=== PATIENT | female | born 2005 | race Caucasian/White ===

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

== ENCOUNTER 2025-09-10 13:26 | Outpatient (AMB) | payer OTHER, SELFPAY ==
--- NOTE | 2025-09-10 13:27 | MHC.OFFVIS ---
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 She has been on Depo-Provera for about 2 years which she gets at the [facility] she had the HPV vaccine there she still goes there. She has been in conversation with them about whether not she should change her method of control partly because she has been having some irregular bleeding often on and also because they had told her it was not good to stay on it for more than a couple of years. She is sexually active with her boyfriend who lives with them. 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 She is working on weight loss and is currently on Zepbound which she gets through Dr. Aburto at the weight management program through [facility], previously she was on Wegovy she has lost about 30 lb so far she does have a treadmill at home she would like to go to the gym. She does admit that it can be challenging to go gym with lots of thin people around. [facility] Medical History Heavy menstrual bleeding Family History Father Hypertension Social History (Updated 09/10/25 @ 13:35 by Laura Villa MA) Household Members: Family Housing: House Current occupational status: employed and student Current occupation: [employer] Female Reproductive History Menstrual Age of Menarche: 11 Date of last menstrual period: 08/11/25 control method: progesterone injection (Depo) Total pregnancies: 0 Physical Exam Vital Signs: Last Vital Signs BP 110/66 09/10/25 13:38 BMI result Body Mass Index 47.5 Const General: healthy appearing, comfortable, no acute distress, well developed and alert Nutritional Appearance: average body habitus and obese Orientation/consciousness: patient oriented x3 Limitations: no limitations HEENT Head: Yes normocephalic Neck Neck: Yes normal visual inspection Chest Chest palpation & inspection: normal inspection of the chest Breast/axilla inspection: normal inspection of the breasts and normal inspection of the axillae Breast/axilla palpation: normal palpation of the breasts and normal palpation of the axillae Resp Effort & Inspection: normal respiratory effort GI Inspection: Yes normal to inspection, No Abdominal wall edema and No distended Palpation (GI): Soft to palpation and nontender Other: Pelvic exam done external exam within normal limits vagina is pink and moist cervix is pink moist very tiny, tightly closed, nulliparous . Uterus is small mobile nontender difficult to feel completely secondary to adipose adnexa nontender good muscle tone General: Yes bladder normal to palpation External Female Exam: normal external appearance and normal appearance of the urethra Speculum Exam - Vagina: normal appearance of the vagina, normal palpation and normal vaginal discharge Speculum Exam - Cervix: normal appearance of the cervix, normal palpation and nontender Bimanual exam- vagina & uterus: normal bimanual exam, normal palpation, uterine size normal, bladder normal to palpation, consistency normal, normal palpation, uterine mobility normal, uterine shape normal, No Cervical tenderness present, non-tender and no cervical motion tenderness Bimanual Exam- Adnexa, other: normal adnexae, no masses, normal and No adnexal tenderness Neuro General: patient oriented x3 Assessment & Plan Assessment & Plan (1) Generalized anxiety disorder: Code(s): F41.1 - Generalized anxiety disorder (2) Well woman exam with routine gynecological exam: Code(s): Z01.419 - Encounter for gynecological examination (general) (routine) without abnormal findings Category: Medical (3) Screen for sexually transmitted diseases: Code(s): Z11.3 - Encounter for screening for infections with a predominantly sexual mode of transmission Category: Medical (4) control counseling: Code(s): Z30.09 - Encounter for other general counseling and advice on contraception Category: Medical (5) Uses Depo-Provera as primary control method: Comment: Has been on it for 2 years through the [facility]. Gets it every 12 weeks last injection July 16 and next injection is October 07, occasionally having breakthrough bleeding considering options... Code(s): Z78.9 - Other specified health status Category: Social Hx (6) Obesity, morbid, BMI 40.0-49.9: Comment: Currently on Zepbound was on Wegovy via weight management program at [facility]. Code(s): E66.01 - Morbid (severe) obesity due to excess calories Category: Medical Plan -----Discussed in this visit the following: healthy balanced diet, regular and consistent exercise, getting recommended health screens, doing the best she can for her particular health concerns, kegel exercises, pap smear screening and followup recommendations, mammography screening and SBE, normal changes in cycles in her life stage--- .-I reviewed with the patient, all of the currently common used methods of control that are available. We reviewed how they work in the body, how they are taken, common side effects, uncommon side effects, precautions, and contraindications. -Discussed also factors that influence their effectiveness and use, and womens satisfaction with the method. -Discussed how each are used, and drawbacks of each method as well. -Methods covered included: condoms, control pills, control patches, control rings, Depo-Provera, Nexplanon, Mirena and Kyleena IUDs, and ParaGard IUDs. All of the above methods were covered in great detail including their side effect profiles and common experiences that women have and ways to mitigate against the negative experiences including attention to diet and exercise patient's with bleeding challenges that may occur her and efforts to time the initiation of the method to this start of the menstrual period. Orders: Orders CT NG by PCR Vag/Cerv Today Z11.3 - Encounter for screening for infections with a predominantly sexual mode of transmission Bacterial Vaginosis Panel Today Z11.3 - Encounter for screening for infections with a predominantly sexual mode of transmission Coding Level of Care Code New Pt Prev Care 18-39yr([id number] Diagnoses Generalized anxiety disorder F41.1 Well woman exam with routine gynecological exam Z01.419 Screen for sexually transmitted diseases Z11.3 control counseling Z30.09 Uses Depo-Provera as primary control method Z78.9 Obesity, morbid, BMI 40.0-49.9 E66.01
[2025-09-10 13:38] VITALS: BP 110/66; BMI 47.5
--- OUTSIDE RECORDS SUMMARY | 2025-09-10 16:21 | XMS_ITS | Encounter Summary ---
Author Organization [facility] Address [address] [place] [address] Phone Care Team Providers Care Machine Greaser Name Role Phone Mary Guerrero MD Primary Care Provider [phone] Reason for Visit * Reason Comments Med Refill Encounter Details Date Type Department Care Team (Late st Contact Info) Description 03/02/[address] [address] Nellie Molina DO [address] [place] [address] Anxiety Social History Tobacco Use Types Packs/Day Years Used Date Smoking Tobacco: Never Smokeless Tobacco: Never Comments:Never smoker Comments No Sex and Gender Information Value Date Recorded Sex Assigned at Not on file Legal Sex Female 5:16 PM EDT Gender Identity Female 10/26/2020 4:22 PM EST Sexual Orientation Straight 06/29/2023 11 :53 AM EDT documented as of this encounter Miscellaneous Notes * Telephone Encounter - Valeria Lozano MA - 03/03/2019 9:48 AM EDT Med check apt current. PE current and no f/u pending. Pt will need a f/u with new PCP in May. Please refill the Fluoxetine. documented in this encounter Plan of Treatment Upcoming Encounters Date Type Department Care Team (Late st Contact Info) Description 09/29/2025 1:45 PM EST Office Visit [facility] [address] [place] [address] Lucie Humphrey LCSW [address] [place] [address] 10/07/2025 8:00 AM EST Office Visit [facility] [address] [address] Mary Guerrero MD [address] [place] [address] documented as of this encounter Visit Diagnoses Diagnosis Anxiety Anxiety state, unspecified documented in this encounter Care Teams Machine Greaser Relationship Specialty Start Date End Date Mary Guerrero MD [address] [place] [address] PCP - General Pediatrics 11/02/20 documented as of this encounter
--- OUTSIDE RECORDS SUMMARY | 2025-09-10 16:21 | XMS_ITS | Encounter Summary ---
Author Organization [facility] Address [address] [place] [address] Phone Care Team Providers Care Social Services Analyst Name Role Phone Mary Guerrero MD Primary Care Provider [phone] Encounter Details Date Type Department Care Team (Late st Contact Info) Description 06/22/[address] [facility] [address] [place] [address] Social History Tobacco Use Types Packs/Day Years Used Date Smoking Tobacco: Never Comments:Never smoker Comments Unknown Sex and Gender Information Value Date Recorded Sex Assigned at Not on file Legal Sex Female 5:16 PM EDT Gender Identity Female 10/26/2020 4:22 PM EST Sexual Orientation Straight 06/29/2023 11 :53 AM EDT documented as of this encounter Plan of Treatment Upcoming Encounters Date Type Department Care Team (Late st Contact Info) Description 09/29/2025 1:45 PM EST Office Visit [facility] [address] [place] [address] Lucie Humphrey LCSW [address] [place] [address] 10/07/2025 8:00 AM EST Office Visit [facility] [address] [place] [address] Mary Guerrero MD [address] [place] [address] documented as of this encounter Visit Diagnoses Not on filedocumented in this encounter Care Teams Social Services Analyst Relationship Specialty Start Date End Date Mary Guerrero MD [address] [place] [address] PCP - General Pediatrics 11/02/20 documented as of this encounter
--- OUTSIDE RECORDS SUMMARY | 2025-09-10 16:21 | XMS_ITS | Encounter Summary ---
Author Organization [facility] Address [address] [place] [address] Phone Care Team Providers Care Medium Cycle Salesperson Name Role Phone Mary Guerrero MD Primary Care Provider [phone] Reason for Visit * Reason Comments Med Refill Encounter Details Date Type Department Care Team (Late st Contact Info) Description 05/31/2019 Refill [facility] [place] [address] [place] [address] Mary Kay Marroquin MD [address] [place] [address] Anxiety Social History Tobacco Use Types Packs/Day [...] encounter Miscellaneous Notes * Telephone Encounter - Nellie Molina DO - 05/31/2019 4:52 PM EDT I changed Rx to fluoxetine 20mg capsule- 1 daily; instead of two 10mg capsules daily. * Telephone Encounter - Lucie Elizabeth LPN - 05/31/2019 12:04 PM EDT PC PCP was [facility]: Pharm fax refill request fluoxetine. Previous pt of Dr. Marroquin. Call placed to [facility] f/u was due this month with new PCP. Trans to rout appt to help choosing new PCP and sched med check. EH documented in this encounter Plan of Treatment Upcoming Encounters Date Type Department Care Team (Late st Contact Info) Description 09/29/2025 1:45 PM EST Office Visit [facility] [address] [place] [address] Lucie Humphrey LCSW [address] [place] [address] 10/07/2025 8:00 AM EST Office Visit [facility] [address] [place] [address] Mary Guerrero MD [address] [place] [address] documented as of this encounter Visit Diagnoses Diagnosis Anxiety Anxiety state, unspecified documented in this encounter Care Teams Medium Cycle Salesperson Relationship Specialty Start Date End Date Mary Guerrero MD [address] [place], [place] [id number] PCP - General Pediatrics 11/02/20 documented as of this encounter
--- OUTSIDE RECORDS SUMMARY | 2025-09-10 16:21 | XMS_ITS | Encounter Summary ---
Author Organization [facility] Address [address] [place] [address] Phone Care Team Providers Care Supervisor Boilermaking Shop Name Role Phone Mary Guerrero MD Primary Care Provider [phone] Reason for Visit * Reason Comments Med Refill Encounter Details Date Type Department Care Team (Late st Contact Info) Description 07/30/[address] [address] Mary Kay Marroquin MD [address] [place] [address] Anxiety (Primary Dx) Social History Tobacco Use Types Packs/Day Years Used Date Smoking Tobacco: Never Comments:Never smoker Comments No Sex and Gender Information Value Date Recorded Sex Assigned at Not on file Legal Sex Female 5:16 PM EDT Gender Identity Female 10/26/2020 4:22 PM EST Sexual Orientation Straight 06/29/2023 11 :53 AM EDT documented as of this encounter Miscellaneous Notes * Telephone Encounter - Mansi Diaz LPN - 07/30/2018 11:58 AM EDT Refill request for Fluoxetine, last PE 11/19/18, has pending PE appt on 11/19/18./LENORA documented in this encounter Plan of Treatment Upcoming Encounters Date Type Department Care Team (Late st Contact Info) Description 09/29/2025 1:45 PM EST Office Visit [facility] [address] [place] [address] Lucie Humphrey LCSW [address] [place] [address] 10/07/2025 8:00 AM EST Office Visit [facility] - [address] [address] Mary Guerrero MD [address] [place] [address] documented as of this encounter Visit Diagnoses Diagnosis Anxiety- Primary Anxiety state, unspecified documented in this encounter Care Teams Supervisor [employer]il[employer]aking Shop Relationship Specialty Start Date End Date Mary Guerrero MD [address] [place] [address] PCP - General Pediatrics 11/02/20 documented as of this encounter
--- OUTSIDE RECORDS SUMMARY | 2025-09-10 16:21 | XMS_ITS | Encounter Summary ---
Author Organization [facility] Address [address] [place] [address] Phone Care Team Providers Care Hvac Residential Service Technician Name Role Phone Mary Guerrero MD Primary Care Provider [phone] Reason for Visit * Reason Comments Med Refill Encounter Details Date Type Department Care Team ([facility] st Contact Info) Description 08/18/2023 Refill [facility] [address] [place] [address] Mary Guerrero MD [address] [place] [address] Chronic maxillary sinusitis Social History Tobacco Use Types Packs/Day Years Used Date Smoking Tobacco: Never Smokeless Tobacco: Never Comments:Never smoker Hunger/Food Answer Date Recorded In the last 12 months, did y ou or your family ever eat less than you felt you should because there wasn't enough money for food? No 12/06/2021 Stable Housing Answer Date Recorded Are you worried that in the next 2 months you may not have stable housing? No 12/06/2021 Transportation Concerns Answer Date Rec orded In the last 12 months, have you or your family ever had to go without healthcare because you didn't have a way to get there? No 12/06/2021 Hazards in Home Answer Date Recorded Think about the place you li ve. Do you have problems with any of the following? Pests (mice or roaches), mold, no/not working smoke detectors, water leaks, no window guards. No 2021 Financing Utilities Answer Date Recorde d In the last 12 months, has t he electric, gas, oil, or water company threatened to shut off your services in your home? No 12/06/2021 Safety at Home Answer Date Recorded Are you or your family worried about feeling saf e in your home? No 12/06/2021 Outside Support Answer Date Recorded Do you feel that you need mo re support from other people or programs to help you care for yourself or your family? No 12/06/2021 Understanding Health Concerns Answer Da te Recorded Do you need help understandi ng your or your child's healthcare needs (diagnosis, medications, plan, etc.)? No 12/06/2021 Financing Health Concerns Answer Date R ecorded In the last 12 months, was t here a time when your child needed to see a doctor or get medications or supplies but could not because of cost? No 12/06/2021 Missing School or Work Answer Date Arnulfo rded Did you or your child miss s chool or work because of a health problem that could have been avoided? No 12/06/2021 Comments No Sex and Gender Information Value Date Recorded Sex Assigned at Not on file Legal Sex Female 5:16 PM EDT Gender Identity Female 10/26/2020 4:22 PM EST Sexual Orientation Straight 06/29/2023 11 :53 AM EDT documented as of this encounter Miscellaneous Notes * Telephone Encounter - Mary Guerrero MD - 08/22/2023 5:14 PM EDT Rx reviewed and e-prescribed to pharmacy. * Telephone Encounter - Lucie Elizabeth LPN - 08/18/2023 8:36 AM EDT Pharm requesting refill fluticasone. EH documented in this encounter Plan of Treatment Upcoming Encounters Date Type Department Care Team (Late st Contact Info) Description 09/29/2025 1:45 PM EST Office Visit [facility] [address] [place] [address] Lucie Humphrey LCSW [address] [place] [address] 10/07/2025 8:00 AM EST Office Visit [facility] - [address] [address] Mary Guerrero MD [address] [place] [address] documented as of this encounter Visit Diagnoses Diagnosis Chronic maxillary sinusitis documented in this encounter Care Teams Hvac Residential Service Technician Relationship Specialty Start Date End Date Mary Guerrero MD [address] [place] [address] PCP - General Pediatrics 11/02/20 documented as of this encounter
--- OUTSIDE RECORDS SUMMARY | 2025-09-10 16:22 | XMS_ITS | Encounter Summary ---
Author Organization [facility] Address [address] [place] [address] Phone Care Team Providers Care Accounting Machine Servicer Name Role Phone Mary Guerrero MD Primary Care Provider [phone] Reason for Visit * Reason Comments Med Refill Encounter Details Date Type Department Care Team (Late st Contact Info) Description 01/19/2018 Refill [facility] [address] [place] [address] Mary Kay Marroquin MD [address] [place] [address] Anxiety Social History Tobacco Use Types Packs/Day Years Used Date Smoking Tobacco: Never Comments:Never smoker Comments No Sex and Gender Information Value Date Recorded Sex Assigned at Not on file Legal Sex Female 5:16 PM EDT Gender Identity Female 10/26/2020 4:22 PM EST Sexual Orientation Straight 06/29/2023 11 :53 AM EDT documented as of this encounter Miscellaneous Notes * Telephone Encounter - Criselda Reynolds LPN - 01/22/2018 9:34 AM EDT FLUOXETINE 10MG CAPSULES Last pe 11/23 documented in this encounter Plan of Treatment Upcoming Encounters Date Type Department Care Team (Late st Contact Info) Description 09/29/2025 1:45 PM EST Office Visit [facility] [address] [place], [place] [phone] Lucie Humphrey LCSW [address] [place], [place] [phone] 10/07/2025 8:00 AM EST Office Visit [facility] - [address] [address] Mary Guerrero MD [address] [place] [address] documented as of this encounter Visit Diagnoses Diagnosis Anxiety Anxiety state, unspecified documented in this encounter Care Teams Accounting Machine Servicer Relationship Specialty Start Date End Date Mary Guerrero MD [address] [place] [address] PCP - General Pediatrics 11/02/20 documented as of this encounter
--- OUTSIDE RECORDS SUMMARY | 2025-09-10 16:22 | XMS_ITS | Encounter Summary ---
Author Organization [facility] Address [address] [place] [address] Phone Care Team Providers Care Switch Box Installer Name Role Phone Mary Guerrero MD Primary Care Provider Reason for Visit * Reason Comments Med Refill Encounter Details Date Type Department Care Team (Late st Contact Info) Description 04/30/2025 Refill [facility] [place] [address] [place] [address] Mary Guerrero MD [address] [place] [address] Acute upper respiratory infection, unspecified Social History Tobacco Use Types Packs/Day Years Used Date Smoking Tobacco: Never Smokeless Tobacco: Never Comments:Never smoker Hunger/Food Answer Date Recorded In the last 12 months, did y ou or your family ever eat less than you felt you should because there wasn't enough money for food? No 02/05/2025 Stable Housing Answer Date Recorded Are you worried that in the next 2 months you may not have stable housing? No 02/05/2025 Transportation Concerns Answer Date Rec orded In the last 12 months, have you or your family ever had to go without healthcare because you didn't have a way to get there? No 02/05/2025 Hazards in Home Answer Date Recorded Think about the place you li ve. Do you have problems with any of the following? Pests (mice or roaches), mold, no/not working smoke detectors, water leaks, no window guards. No 2024 Financing Utilities Answer Date Recorde d In the last 12 months, has t he electric, gas, oil, or water company threatened to shut off your services in your home? No 02/05/2025 Safety at Home Answer Date Recorded Are you or your family worried about feeling saf e in your home? No 02/05/2025 Outside Support Answer Date Recorded Do you feel that you need mo re support from other people or programs to help you care for yourself or your family? No 02/05/2025 Understanding Health Concerns Answer Da te Recorded Do you need help understandi ng your or your child's healthcare needs (diagnosis, medications, plan, etc.)? No 02/05/2025 Financing Health Concerns Answer Date R ecorded In the last 12 months, was t here a time when your child needed to see a doctor or get medications or supplies but could not because of cost? No 02/05/2025 Missing School or Work Answer Date Arnulfo rded Did you or your child miss s chool or work because of a health problem that could have been avoided? No 02/05/2025 Child Education Answer Date Recorded Do you have concerns about y our/your child's learning or behavior in school, preschool, or daycare? No 02/05/2025 Comments No Sex and Gender Information Value Date Recorded Sex Assigned at Not on file Legal Sex Female 5:16 PM EDT Gender Identity Female 10/26/2020 4:22 PM EST Sexual Orientation Straight 06/29/2023 11 :53 AM EDT documented as of this encounter Miscellaneous Notes * Telephone Encounter - Mary Guerrero MD - 05/02/2025 12:58 PM EDT Rx reviewed and e-prescribed to pharmacy. * Telephone Encounter - Tamara Rueda RN - 04/30/2025 1:47 PM EDT Pharm requesting med refill of Fluticasone nasal spray.Last PE 02/05/25. documented in this encounter Plan of Treatment Upcoming Encounters Date Type Department Care Team (Late st Contact Info) Description 09/29/2025 1:45 PM EST Office Visit [facility] [address] [place] [address] Lucie Humphrey LCSW [address] [place] [address] 10/07/2025 8:00 AM EST Office Visit [facility] [address] [address] Mary Guerrero MD [address] [place] [address] documented as of this encounter Visit Diagnoses Diagnosis Acute upper respiratory infection, unspecified documented in this encounter Care Teams Switch Box Installer Relationship Specialty Start Date End Date Mary Guerrero MD [address] [place] [address] PCP - General Pediatrics 11/02/20 documented as of this encounter
--- OUTSIDE RECORDS SUMMARY | 2025-09-10 16:22 | XMS_ITS | Encounter Summary ---
Author Organization [facility] Address [address] [place] [address] Phone Care Team Providers Care Machine Silk Screen Printer Name Role Phone Mary Guerrero MD Primary Care Provider [phone] Reason for Visit * Reason Comments Med Refill Encounter Details Date Type Department Care Team (Late st Contact Info) Description 01/08/2023 Refill [facility] [place] [address] [place] [address] Mary Guerrero MD [address] [place] [address] Anxiety Social History Tobacco Use Types Packs/Day [...] Telephone Encounter - Mary Guerrero MD - 01/09/2023 8:01 PM EST Rx reviewed and e-prescribed to pharmacy. * Telephone Encounter - James Torres LPN - 01/09/2023 11:47 AM EST Refill request for fluoxetine 20 and 10 mg. Last PE was 01/02/23 documented in this encounter Plan of Treatment Upcoming Encounters Date Type Department Care Team (Late st Contact Info) Description 09/29/2025 1:45 PM EST Office Visit [facility] [place] [address] [place] [address] Lucie Humphrey LCSW [address] [place] [address] 10/07/2025 8:00 AM EST Office Visit [facility] - [address] [address] Mary Guerrero MD [address] [place] [address] documented as of this encounter Visit Diagnoses Diagnosis Anxiety Anxiety state, unspecified documented in this encounter Care Teams Machine Silk Screen Printer Relationship Specialty Start Date End Date Mary Guerrero MD [address] [place] [address] PCP - General Pediatrics 11/02/20 documented as of this encounter
--- OUTSIDE RECORDS SUMMARY | 2025-09-10 16:22 | XMS_ITS | Encounter Summary ---
Author Organization [facility] Address [address] [place] [address] Phone Care Team Providers Care Wad Impregnator Name Role Phone Mary Guerrero MD Primary Care Provider [phone] Reason for Visit * Reason Comments Med Refill Encounter Details Date Type Department Care Team (Late st Contact Info) Description 12/06/2022 Refill [facility] [place] [address] [place] [address] Sonia Grijalva NP Anxiety Social History Tobacco Use Types Packs/Day [...] encounter Miscellaneous Notes * Telephone Encounter - James Torres LPN - 12/06/2022 1:28 PM EST [facility] request for fluoxetine 10 mg. Last PE was 12/06/21 documented in this encounter Plan of Treatment Upcoming Encounters Date Type Department Care Team (Late st Contact Info) Description 09/29/2025 1:45 PM EST Office Visit [facility] [address] [place] [address] Lucie Humphrey LCSW [address] [place] [address] 10/07/2025 8:00 AM EST Office Visit [facility] [place] [address] [place] [address] Mary Guerrero MD [address] [place] [address] documented as of this encounter Visit Diagnoses Diagnosis Anxiety Anxiety state, unspecified documented in this encounter Care Teams Wad Impregnator Relationship Specialty Start Date End Date Mary Guerrero MD [address] [place] [address] PCP - General Pediatrics 11/02/20 documented as of this encounter
--- OUTSIDE RECORDS SUMMARY | 2025-09-10 16:22 | XMS_ITS | Encounter Summary ---
Author Organization [facility] Address [address] [place] [address] Phone Care Team Providers Care Marriage Performer Name Role Phone Mary Guerrero MD Primary Care Provider [phone] Encounter Details Date Type Department Care Team (Late st Contact Info) Description 07/31/2025 Results Follow-Up [facility] [place] [address] [place] [address] Izabela Prado [place] [address] [place] [address] Social History Tobacco Use Types Packs/Day Years [...] Description 09/29/2025 1:45 PM EST Office Visit [facility] [address] [place] [address] Lucie Humphrey LCSW [address] [place] [address] 10/07/2025 8:00 AM EST Office Visit [facility] [address] [place] [address] Mary Guerrero MD [address] [place] [address] documented as of this encounter Visit Diagnoses Not on filedocumented in this encounter Care Teams Marriage Performer Relationship Specialty Start Date End Date Mary Guerrero MD [address] [place] [address] PCP - General Pediatrics 11/02/20 documented as of this encounter
--- OUTSIDE RECORDS SUMMARY | 2025-09-10 16:22 | XMS_ITS | Encounter Summary ---
Author Organization [facility] Address [address] [place] [phone] Phone Care Team Providers Care Software Tools Developer Name Role Phone Mary Guerrero MD Primary Care Provider [phone] Encounter Details Date Type Department Care Team (Late st Contact Info) Description 07/18/2016 Documentation [facility] [address] [place] [address] Family Medicine, Physician [address] [place] [address] Social History Tobacco Use Types Packs/Day Years Used Date Smoking Tobacco: Never Assessed Comments Unknown Sex and Gender Information Value Date Recorded Sex Assigned at Not on file Legal Sex Female 5:16 PM EDT Gender Identity Female 10/26/2020 4:22 PM EST Sexual Orientation Straight 06/29/2023 11 :53 AM EDT documented as of this encounter Plan of Treatment Upcoming Encounters Date Type Department Care Team (Late st Contact Info) Description 09/29/2025 1:45 PM EST Office Visit [facility] [address] [place] [address] Lucie Humphrey LCSW [address] [place] [address] 10/07/2025 8:00 AM EST Office Visit [facility] [address] [place] [address] Mary Guerrero MD [address] [place], [place] [id number] documented as of this encounter Visit Diagnoses Not on filedocumented in this encounter Care Teams Software Tools Developer Relationship Specialty Start Date End Date Mary Guerrero MD [address] [place] [address] PCP - General Pediatrics 11/02/20 documented as of this encounter
--- OUTSIDE RECORDS SUMMARY | 2025-09-10 16:22 | XMS_ITS | Clinical Summary ---
Author Organization [facility] Address [address] [place] [address] Phone Care Team Providers Care Handicrafts Teacher Name Role Phone Kamlesh Baron MD Primary Care Provider [phone] Allergies Active Allergy Reactions Criticality Noted Date Comments Amoxicillin Rash Low 04/20/2018 Cephalexin Rash Low 11/18/2019 Not 100% sure this is allergy - morbiliform rash on day 7 of meds, on all 4 extremities. + itching. 2nd episode - 1st happened with amoxicillin. Penicillin G 05/02/2024 Other Reaction(s): Rash/Dermatitis Medications ACETAMINOPHEN EXTRA STRENGTH PO Take by mouth. Active Cranberry-Vit C-Lactobacillus (RA CRANBERRY SUPPLEMENTS PO) Take by mouth. Active Magnesium Oxide -Mg Supplement 400 (240 Mg) MG tabletIndications :Headache, unspecified TAKE 1 TABLET BY MOUTH EVERY DAY 90 tablet 1 05/21/20 24 Active Additional Information Patient not taking.Reported on 08/22/2025 fluticasone 50 MCG/ACT nasal sprayIndications: Acute upper respiratory infection, unspecified SPRAY 2 SPRAYS INTO EACH NOSTRIL EVERY DAY 48 mL 1 05/02/20 25 Active medroxyPROGESTERo ne 150 MG/ML injectionIndicati ons:Encounter for initial prescription of injectable contraceptive INJECT 1 ML (150 MG TOTAL) INTO THE MUSCLE EVERY 3 (THREE) MONTHS 1 mL 3 07/11/20 25 026 Active norethindrone-eth inyl estradiol (11/25) 1-20 MG-MCG per tabletIndications :Breakthrough bleeding on Depo-Provera Take 1 tablet by mouth daily. 28 tablet 08/06/20 25 026 Active omeprazole 20 MG EC tabletIndications :Upper abdominal pain Take 1 tablet (20 mg total) by mouth daily. Take medicine one hour before eating. 90 tablet 08/22/20 026 Active Zepbound 10 MG/0.5ML solution auto-injector Inject 10 mg under the skin every 7 days. 08/06/20 025 Active Problems Problem Noted Date Diagnosed Date Overactive bladder 03/25/2025 Overview (03/25/2025): 03/25/2025 Refer to [facility]. Chronic tension-type headache, not intractable 0 01/08/2024 Reactive depression 01/03/2023 Assessment & Plan (01/03/2023 9:10 PM EST): Discussed positive responses on today's depression screening form. Conchis denies that she is harming herself or that she is at risk of this. Her negative feelings stem largely from the difficult dynamics with her father and other members of his household including Conchis's 15 year old stepsister. She talks to mom about this. Agrees that it would be good to resume doing therapy. May call prior provider or consider seeing one of the clinicians at [facility]. Migraine 11/25/2022 Overview (11/25/2022): Much worse headaches than usual last week. Seen in ED and treated with toradol/compazine. Assessment & Plan (01/08/2024 11:13 PM EST): This is a chronic concern for Conchis. She has been treated in the ED before. Tension versus migraine. Discussed hydration, stress relief, sleep, magnesium and riboflavin (B2). Keep a headache journal. Consider physical therapy for headaches. Call with any concerns. Menorrhagia with regular cycle 05/02/2022 Assessment & Plan (11/25/2022 12:26 PM EST): OCP was stopped due to a severe headache on 11/17/22. Assessment & Plan (08/21/2022 3:09 PM EDT): We agreed to try a different OCP. 24 is more progesterone predominant and has 24 hormone pills followed by 4 iron pills. Discussed there may be some spotting with the lower estrogen level. Recommend taking OTC ibuprofen during the first couple of days of the period as this may both alleviate cramps and shorten the period. Recheck in about three months, sooner with any concerns. Assessment & Plan (05/02/2022 4:50 PM EDT): Discussed options and she prefers to try an oral contraceptive pill. Discussed potential benefits, risks and side effects. Discussed how to start, when to take, and what to do if pills missed. Encourage abstinence, and recommend consistent condom use if sexually active. Recheck in 2-3 months, sooner if severe side effects or concerns. Elevated liver enzymes 01/01/2021 Anxiety 11/13/2017 Overview (02/14/2020): Doing well on Fluoxetine 20mg daily. In regular therapy at [facility]. SO 11/2019 Historical comments from prior provider: Fluoxetine 20 mg daily. Has therapist that she sees regularly. School accommodations to take breaks when needed. Symptoms seem to worsen before period. Advised to take Evening [place] [employer] 1000mg up to 3x daily for symptoms of PMS , will follow up to determine whether or not this helps. MBR Advised increasing exercise and decrease in junk food intake. Entire family with poor lifestyle habits and coping. Motivation to change is low - in contemplative phase ( better than pre-contemplative but remains with little action). 02/14/2020 (age 14 yr 7 mo): I saw Conchis during the covid 19 pandemic for anxiety visit and med refill. She seems to be coping well, actually GEN 7 down to 4 from 7. Assessment & Plan (02/05/2025 6:28 PM EDT): Ok that she has resumed taking fluoxetine 40 mg daily. Will let me know when she needs a refill. Med check six months sooner prn. Encourage working with a therapist regularly. Assessment & Plan (10/10/2022 5:56 PM EST): Pt w/ hx of anxiety/depression; request refill of Prozac 30mg daily; Pt was in therapy but taking a break; pt is due to see Dr. Baron, her PCP, Nov 17, 2022 rx filled; GEN 4 and PHQ9 5; +SI several days; no plan; pt/mom have crisis #'s and aware that they need to reach out mary if any acute plan or s/s worsening Assessment & Plan (05/02/2022 4:52 PM EDT): Will continue fluoxetine 30 mg daily. I encourage looking for another therapist so that she has the relationship in place if symptoms worsen again in the future. Assessment & Plan (03/30/2022 1:33 AM EDT): She is getting some benefit now that she is taking fluoxetine regularly. We agreed to try increasing the dose from 20 to 30 mg daily. Self care discussed. Importance of therapy discussed. She is also interested in trying a contraceptive for help with her periods. After one month on this dose, will come to the office for an in-person med check and contraceptive discussion. Assessment & Plan (12/03/2020 3:45 PM EST): Agree with seeing a new therapist at [facility] if possible. Will continue fluoxetine for now. Med check in six months, sooner prn. Assessment & Plan (02/14/2020 11:16 AM EDT): 02/14/2020 (age 14 yr 7 mo): I saw Conchis during the covid 19 pandemic for anxiety visit and med refill. She seems to be coping well, actually GEN 7 down to 4 from 7. I encouraged regular exercise, increasing social contact where possible, and continue fluoxetine 20 mg. She has been seeing her therapist via virtual visit/skype. MBR Assessment & Plan (01/13/2019 11:05 AM EDT): Entire family feeling very stressed lately. Poor diets, limited physical activity, every gaining wait leading to lower self-esteem and increased irritability. Mother and patient presented with Eddy forms today. They are not indicative of ADHD. Has more oppositional behaviors at home. Grades are good. Self help behaviors are not being completed. Mother asked whether or not an increase in medication dose is warranted right now. I advised that I would like to see more exercise and decrease in junk food intake before I consider increasing the dose of Prozac. Continue current dose of Prozac now, for anxiety. Continue to see therapist - use the skills you are being taught Follow up with new pcp in 4 months for re-evaluation with GEN 7 screening. Assessment & Plan (12/26/2018 1:35 PM EST): Patient not ready for taper of SSRI, she has not implemented self-help coping skills such as journaling, exercise, or improving diet. Will continue Prozac for now advised to re-visit this with new PCP in 6 months. Assessment & Plan (11/19/2018 4:13 PM EST): Follow up in 1 month for recheck on anxiety - will start taper then. Patient has been on medication for 1 year. Assessment & Plan (10/03/2018 4:27 PM EST): GEN - 7 score today is 4. Continue Fluoxitine 20 mg daily, follow is scheduled in 2 months. Assessment & Plan (06/07/2018 9:21 AM EDT): Has poor compliance with medication. Notices mood swings when not taking consistently. Discussed the importance of consistency. Seems less anxious but is more irritable. Worse before period. No SI no HI. Assessment & Plan (03/29/2018 6:03 PM EDT): Patient and mother report that they are no longer seeing much improvement with Prozac at 10 mg. Seems to be just as clark as she was prior to starting the medication. She continues to see therapist regularly. Reports good compliance. Denies SI and HI. I suspect that diet and sedentary lifestyle make be contributing to low mood but since 10 mg of Prozac is low dose will increase to 20 mg daily. Also suggest to schedule an appointment with Dr. Bonner for hypnotherapy for anxiety. Assessment & Plan (01/24/2018 4:53 PM EDT): Currently on Prozac 10 mg. Tolerating this well. Anxiety and mood have improved. Sees therapist at [facility]. Class 3 severe obesity witho ut serious comorbidity with body mass index (BMI) of 50.0 to 59.9 in adult 07/18/2012 Assessment & Plan (08/27/2025 4:58 PM EDT): >>ASSESSMENT AND PLAN FOR CHILDHOOD OBESITY WRITTEN ON 01/24/2018 4:52 PM BY KIMMY ZHOU MD Patient weight up since last visit. She feels disappointed about this. Will obtain labs to screen for obesity related conditions. Will refer to [facility]. Assessment & Plan (08/27/2025 4:58 PM EDT): >>ASSESSMENT AND PLAN FOR CHILDHOOD OBESITY WRITTEN ON 03/29/2018 5:57 PM BY KIMMY ZHOU MD Has been seen by community service aide in weight management clinic. Mother reports that it was quite helpful. Patient continues to have uncontrollable sweet cravings. Weight continues to increase. Has little to no exercise. They ( mother and daughter) do seem motivated to continue the lifestyle change. I suggested that patient see Dr. Bonner for anxiety and food cravings (medical hypnotherapy). Assessment & Plan (08/27/2025 4:58 PM EDT): >>ASSESSMENT AND PLAN FOR CHILDHOOD OBESITY WRITTEN ON 11/19/2018 4:13 PM BY KIMMY ZHOU MD Worsening. Motivation to change is low Assessment & Plan (08/27/2025 4:58 PM EDT): >>ASSESSMENT AND PLAN FOR CHILDHOOD OBESITY WRITTEN ON 12/03/2020 3:48 PM BY KAMLESH BARON MD Conchis has begun to show some motivation to manage her weight; on review of chart, this seems to be a new and positive development. We discussed making small incremental changes in the diet, being aware of boredom and stress eating, avoiding sources of sugar, and daily physical activity, whether indoors or outdoors. Follow up at any time for support. Lipids were mildly abnormal in October 2020. Assessment & Plan (02/05/2025 6:27 PM EDT): She is on zepbound. Currently 23 lb below the max weight documented here. Will continue. Resolved Problems Problem Noted Date Diagnosed Date Resolved Date Need for case management follow-up 12/03/2020 03/30/2022 Overview (12/03/2020): Needs teen urine screen. History of COVID-19 11/30/2020 09/07/20 Overview (11/30/2020): 10/2020. Mild symptoms. Knee pain 01/24/2013 11/29/2019 Overview (01/13/2019): X-ray of knee normal. This is likely mechanical pain. Related to increasing body habitus and absence of exercise. She has been referred to physical therapy for evaluation and treatment. Overanxious disorder of childhood 09/15/2011 01/24/2018 Encounters Date Type Department Care Team Description 09/05/2025 Results Follow-Up [facility] [address] [place] [address] Kamlesh Baron MD 08/24/2025 Telephone [facility] [address] [place] [address] Mansi Diaz LPN please call 08/22/2025 11:15 AM EDT Office Visit [address] [address] Kamlesh Baron MD Upper abdominal pain (Primary Dx); Hyperlipidemia, unspecified hyperlipidemia type; Elevated liver enzymes; Class 3 severe obesity with body mass index (BMI) of 45.0 to 49.9 in adult, unspecified obesity type, unspecified whether serious comorbidity present; Breakthrough bleeding on depo provera 07/31/2025 9:15 AM EDT Office Visit [address] [address] Criselda Falcon MD Pharyngitis, unspecified etiology (Primary Dx); Encounter for laboratory testing for COVID-19 virus; COVID-19 07/31/2025 Results Follow-Up [facility] [address] [place] [address] Izabela Prado MA 07/23/2025 Telephone [facility] [address] [place] [address] Carmel Braga LPN Menstrual Problem 07/16/2025 8:30 AM EDT Office Visit [facility] [address] [place] [address] Kamlesh Baron MD Encounter for Depo-Provera contraception (Primary Dx); Overactive bladder [address] [address] Kamlesh Baron MD Letter 07/09/[address] [address] Kamlesh Baron MD Encounter for initial prescription of injectable contraceptive 07/04/2025 8:30 AM EDT Office Visit [facility] [address] [place] [address] Mathew Bhatia MD Pharyngitis, unspecified etiology (Primary Dx); Encounter for laboratory testing for COVID-19 virus 07/04/2025 Telephone [facility] [address] [place] [address] James Torres LPN Results 07/04/2025 Results Follow-Up [facility] [address] [place] [address] Izabela Prado MA from Last 3 Months Immunizations Immunization Administration Dates Next Due COVID-19 Pfizer, bivalent, 12+ years 08/16/2022 DTaP / Hep B / IPV 01/13/2006,2005, 005 DTaP 5 10/13/2009,03/07/2007 H1N1 11/18/2009,09/11/2009 HPV Vaccine 9 Valent 11/13/2017,11/09/2016 Hep A, ped/adol 10/04/2007,10/25/2006 Hep B, ped/adol 2005 Hib (HbOC) 2005 Hib (PRP-T) 10/25/2006,01/13/2006,2005 IPV 10/13/2009 Influenza, injectable, quadr ivalent, preservative free 12/19/2023,08/16/2022,06/29/2020,07/26,08/06/2018,07/19/2017,07/18/2016 Influenza, injectable, trivalent 021,10/08/2008,09/06/2007,10/31,10/02/2006 Influenza, intranasal, quadrivalent 08/11/2015,1 11/16/2013,08/06/2013 Influenza, intranasal, trivalent 11/28/2012,07/07 MMR 10/13/2009,07/25/2006 Meningococcal B Trumenba 01/05/2024,01/02/2023 Meningococcal Conj (Menactra) MCV4P 12/06/2021,0 11/09/2016,11/02/2016 Pneumococcal Conjugate 10/25/2006,2005,2005,09/14 Tdap 11/09/2016,11/02/2016 Varicella 10/13/2009,07/25/2006 Family History Medical History Relation Name Comments ADD / ADHD Brother Michael Garcia Asthma Brother Michael Garcia Bipolar disorder Brother Michael Garcia Obesity Brother Michael Garcia Other Brother Michael Garcia DDMD, PTSD Anxiety disorder Father Bi Garcia Hyperlipidemia Father Bi Garcia Hypertension Father Bi Chanhelen Obesity Father Bi Garcia ADD / ADHD Half-Brother 1 Robby Chantre Obesity Half-Brother 1 Robby Chantre ADD / ADHD Half-Brother 2 Dev Chantre Obesity Half-Brother 2 Dve Chantre Cancer (Childhood Onset) Maternal Grandmother Depression Maternal Grandmother Obesity Mother Alejandra Chantre Other Mother Alejandra Chanhelen tension heada ches Asthma Paternal Grandmother Cancer (Childhood Onset) Paternal Grandmother Diabetes Paternal Grandmother Relation Name Status Comments Brother Michael Garcia Alive Brother: Ast hma Cousin Cousin: Autism Father Bi Garcia Alive Father: Alive and well Half-Brother 1 Robby Garcia Alive Half bro ther (P): ADD Half-Brother 2 Dev Garcia Alive Maternal Grandmother Materna l grandmother: Cancer, lung Mother Alejandra Garcia Alive Mother: Alive and well Other No family histo ry of *Heart Disease, Family history of Cancer, breast, No family history of *Sudden /MT under 55, Family history of Eczema, No family history of Seizure disorder, No family history of Elevated cholesterol, Family history of ADD/ADHD, No family history of *Dental caries, No family history of Obesity, No family history of Developmental dislocation of hip, No family history of *Thrombophilia, Family history of Asthma, Family history of Allergies, No family history of Strabismus/amblyopia, Family history of Obesity, No family history of Migraines, Family history of Cancer, pancreas, Family history of Diabetes mellitus, No family history of Sudden /MT under age 55, No family history of Deafness, Family history of Depression Paternal Grandmother Paterna l grandmother: Asthma, Diabetes mellitus Social History Tobacco Use Types Packs/Day Years [...] Orientation Straight 06/29/2023 11 :53 AM EDT Last Filed Vital Signs Vital Sign Reading Time Taken Comments Blood Pressure 114/76 08/22/2025 11:25 AM EDT Pulse 86 08/22/2025 11:25 AM EDT Temperature 35.6 C (96.1 F) 08/22/2025 11:25 AM EDT Respiratory Rate 20 11/18/2019 8:59 AM EST Oxygen Saturation 96% 07/31/2025 9:36 AM EDT Inhaled Oxygen Concentration - - Weight 107 kg (234 lb 12.8 oz) 08/22/2025 11:25 AM EDT Height 151.1 cm (4' 11.5 ) 08/22/2025 11:25 AM E DT Body Mass Index 46.63 08/22/2025 11:25 AM EDT Plan of Treatment Upcoming Encounters Date Type Department Care Team (Late st Contact Info) Description 09/29/2025 1:45 PM EST Office Visit [facility] - [address] [address] Lucie Humphrey LCSW [address] [place] [address] 10/07/2025 8:00 AM EST Office Visit [facility] [place] [address] [facility] [place] [address] Kamlesh Baron MD [address] [place] [address] Health Maintenance Due Date Last Done Comments HIV Screening 2020 Hepatitis C Screening 2023 Chlamydia and Gonorrhea Screening 11/06/2024 07/02/2024, 01/05/2024, 11/23/2023, Additional history exists Influenza Vaccines (#1) 2025 12/19/19 24, 08/16/2022, 08/01/2021, Additional history exists COVID-19 Vaccine (5 - 2024-2 6 season) 2025 08/16/2022, 11/01/2021, 04/12/2021, Additional history exists DTaP,Tdap,and Td Vaccines (8 - Td or Tdap) 11/09/2026 11/09/2016, 11/02/2016, 10/13/2009, Additional history exists Hepatitis B Vaccines Completed 01/13/2006, 2005, 2005, Additional history exists HIB Vaccines Completed 10/25/2006, 01/04, 2005, Additional history exists Pneumococcal Vaccine Completed 10/25/2006, 01/13/2006, 2005, Additional history exists Hepatitis A Vaccines Completed 10/04/2007, 10/25/20 IPV Vaccines Completed 10/13/2009, 01/04, 2005, Additional history exists MMR Vaccines Completed 10/13/2009, 07/25/2006 Varicella Vaccines Completed 10/13/2009, 07/25/2006 HPV Vaccines Completed 11/13/2017, 11/09/2016 Meningococcal Vaccine Completed 12/06/2021 , 11/09/2016, 11/02/2016 Men B Vaccine Completed 01/05/2024, 01/02/2023 Procedures * Due to [place] state law, this organization might not be sharing sensitive test results. Procedure Name Priority Date/Time Associated Diagnosis Comments US LIVER Routine 09/04/2025 7:56 AM EDT Elevated transaminase level HEMOGLOBIN A1C Routine 08/22/2025 12:44 PM EDT Upper abdominal pain LIPID PANEL, FASTING Routine 08/22/2025 12:44 PM EDT Upper abdominal pain IGA Routine 08/22/2025 12:44 PM EDT Upper abdominal pain TISSUE TRANSGLUTAMINASE, IGA Routine 08/22/2025 12:44 PM EDT Upper abdominal pain AMYLASE Routine 08/22/2025 12:44 PM EDT Upper abdominal pain LIPASE Routine 08/22/2025 12:44 PM EDT Upper abdominal pain CBC Routine 08/22/2025 12:44 PM EDT Upper abdominal pain SEDIMENTATION RATE, AUTOMATED Routine 08/22/2025 12:44 PM EDT Upper abdominal pain COMPREHENSIVE METABOLIC PANEL Routine 08/22/2025 12:44 PM EDT Upper abdominal pain POCT COVID-19, INFLUENZA, AND RSV NUCLEIC ACID (AMPLIFIED PROBE) Routine 07/31/2025 10:18 AM EDT Encounter for laboratory testing for COVID-19 virus POCT STREP A NUCLEIC ACID (AMPLIFIED PROBE) Routine 07/31/2025 10:06 AM EDT Pharyngitis, unspecified etiology POCT , URINE Routine 07/16/2025 8:57 AM EDT Encounter for Depo-Provera contraception POCT COVID-19, INFLUENZA, AND RSV NUCLEIC ACID (AMPLIFIED PROBE) Routine 07/04/2025 9:33 AM EDT Encounter for laboratory testing for COVID-19 virus POCT STREP A NUCLEIC ACID (AMPLIFIED PROBE) Routine 07/04/2025 9:08 AM EDT Pharyngitis, unspecified etiology CHLAMYDIA AND GONORRHEA, AMPLIFIED Routine 07/02/2024 1:27 PM EDT Special screening examination for chlamydial disease from Last 3 Months or Most Recently Relevant to Health Maintenance Results * Due to [place] state law, this organization might not be sharing sensitive test results. * Ultrasound liver (09/04/2025 7:56 AM EDT) Anatomical Region Laterality Modality Body Ultrasound 09/04/2025 7:56 AM EDT Narrative 09/04/2025 10:58 AM EDT US Liver Reason: Elevated transaminase level. COMPARISON: None. IMAGING TECHNIQUE: Grayscale and color Doppler ultrasound examination of the liver. FINDINGS: Liver: Normal in size and echotexture. No focal lesion. Smooth hepatic contour. Main portal vein patent with normal hepatopetal direction of flow. Biliary Tree: No intrahepatic or extrahepatic bile duct dilation is identified. Common duct: 0.3 cm. IMPRESSION: Normal liver. WSN: [id number] Ordering Physician: Kamlesh Baron Dictated By: Luis F Rock MD Dictated Date/Time: 09/04/25 10:58 a Reviewed By: Luis F Rock MD Signed By: Luis F Rock MD Signed Date/Time: 09/04/25 10:58 am Transcribed By: AYESHA Transcribed Date/Time: 09/04/25 10:02 am us Kamlesh Baron MD IM US PROCEDURES Final Result * (ABNORMAL) Lipid Panel, Fasting (08/22/2025 12:44 PM EDT) Cholesterol, Total 204(H) 100 - 199 mg/dL [facility] Triglycerides 71 0 - 149 mg/dL [facility] HDL 50 >39 mg/dL [facility] LDL Chol Calc 141(H) 0 - 99 mg/dL [facility] Non-HDL Cholesterol 154(H) 0 - 129 mg/dL [facility] Comment: Comment [facility] Comment: RECOMMENDED CUT POINTS FOR LIPID LEVELS IN CHILDREN AND ADOLESCENTS UP TO 19 YEARS OF AGE (IN mg/dL) : CATEGORY :ACCEPTABLE : BORDERLINE : HIGH : : : : : : :Total cholesterol : <170 : 170 - 199 : >199 : :Non-HDL cholesterol calc : <120 : 120 - 144 : >144 : :LDL : <110 : 110 - 129 : >129 : :Triglycerides(0-9 yrs) : <75 : 75 - 99 : >99 : :Triglycerides(10-19 yrs) : <90 : 90 - 129 : >129 : : : : : : : CATEGORY :ACCEPTABLE : BORDERLINE : LOW : : : : : : :HDL : >45 : 40 - 45 : <40 : : : : : : RECOMMENDED CUT POINTS FOR LIPID LEVELS IN YOUNG ADULTS 20 - 24 YEARS OLD (IN mg/dL) : CATEGORY :ACCEPTABLE : BORDERLINE : HIGH : : : : : : :Total cholesterol : <190 : 190 - 224 : >224 : :Non-HDL cholesterol calc : <150 : 150 - 189 : >189 : :LDL : <120 : 120 - 159 : >159 : :Triglycerides : <115 : 115 - 149 : >149 : : : : : : : CATEGORY :ACCEPTABLE : BORDERLINE : LOW : : : : : : :HDL : >45 : 40 - 45 : <40 : : : : : : NOTES: UP TO 9 YEARS OLD: If non-HDL cholesterol >144 mg/dL, HDL <40 mg/dL, LDL >129 mg/dL, triglycerides >100 mg/dL - repeat pediatric fasting lipd panel after 2 weeks, but within 3 months. 10 - 19 YEARS OLD: If non-HDL cholesterol >144 mg/dL, HDL <40 mg/dL, LDL >129 mg/dL, triglycerides >130 mg/dL - repeat pediatric fasting lipid panel after 2 weeks, but within 3 months. 20 - 24 YEARS OLD: If non-HDL cholesterol >189 mg/dL, HDL <40 mg/dL, LDL >159 mg/dL, triglycerides >150 mg/dL- repeat pediatric fasting lipd panel after 2 weeks, but within 3 months.[1] 1. Expert Panel on Integrated Guidelines for Cardiovascular Health and Risk Reduction in Children and Adolescents: Summary Report. Pediatrics 2011;128;S213 Blood (Blood) 08/22/2025 12: 44 PM EDT 08/22/2025 Narrative [facility] - 08/23/2025 4:05 AM EDT Performed at: - [facility] [address] [id number] Piece Dyer: Leida Kaur MD, Phone: [phone] Performed at: 02 - [address], [address], [place], [place] [id number] Piece Dyer: Edgard Manzano MD, Phone: [phone] Kamlesh Baron MD LAB BLOOD ORDERABLES Final Resu lt Performing Organization Address [facility] [place] [address] * Tissue transglutaminase, IgA (08/22/2025 12:44 PM EDT) Pathologist [facility] tTG IgA <2 0 - 3 U/mL [facility] Comment: Negative 0 - 3 Weak Positive 4 - 10 Positive >10 Tissue Transglutaminase (tTG) has been identified as the endomysial antigen. Studies have demonstr- ated that endomysial IgA antibodies have over 99% specificity for gluten sensitive enteropathy. Blood 08/22/2025 12:4 4 PM EDT 08/22/2025 Narrative [facility] - 08/23/2025 2:05 PM EDT Performed at: - [facility] [address] [id number] Piece Dyer: Leida Kaur MD, Phone: [phone] Kamlesh Baron MD LAB BLOOD ORDERABLES Final Resu lt Performing Organization Address [facility] [facility] Co de Phone Number [facility] [address] [place] [address] * (ABNORMAL) Sedimentation rate, automated (08/22/2025 12:44 PM EDT) Pathologist [facility] ESR (Erythrocyte Sedimentation Rate), Automated 43(H) 0 - 32 mm/hr [facility] Blood 08/22/2025 12:4 4 PM EDT 08/22/2025 Narrative [facility] - 08/23/2025 4:05 AM EDT Performed at: - [facility] [address] [id number] Piece Dyer: Leida Kaur MD, Phone: [phone] Kamlesh Baron MD LAB BLOOD ORDERABLES Final Resu lt Performing Organization Address [facility] de Phone Number [facility] [address] [place] [address] * CBC (08/22/2025 12:44 PM EDT) [facility] WBC 6.4 3.4 - 10.8 x10E3/uL [facility] RBC 4.56 3.77 - 5.28 x10E6/uL [facility] HGB 13.2 11.1 - 15.9 g/dL [facility] HCT 41.9 34.0 - 46.6 % [facility] MCV 92 79 - 97 fL [facility] MCH 28.9 26.6 - 33.0 pg [facility] MCHC 31.5 31.5 - 35.7 g/dL [facility] RDW 14.3 11.7 - 15.4 % [facility] Platelets in Blood, Automated Count 321 150 - 450 x10E3/uL [facility] Blood 08/22/2025 12:4 4 PM EDT 08/22/2025 Narrative [facility] - 08/23/2025 3:05 AM EDT Performed at: - [facility] [address] [id number] Piece Dyer: Leida Kaur MD, Phone: [phone] Kamlesh Baron MD LAB BLOOD ORDERABLES Final Resu lt Performing Organization Address [facility] Co de Phone Number [facility] [address] [place] [address] * Lipase (08/22/2025 12:44 PM EDT) [facility] Lipase 23 14 - 72 U/L [facility] Blood 08/22/2025 12:4 4 PM EDT 08/22/2025 Narrative [facility] - 08/23/2025 6:05 AM EDT Performed at: [address] [id number] Piece Dyer: Leida Kaur MD, Phone: [phone] Kamlesh Baron MD LAB BLOOD ORDERABLES Final Resu lt Performing Organization Address City/[facility] Co de Phone Number [facility] [address] * Hemoglobin A1c (08/22/2025 12:44 PM EDT) [facility] Hemoglobin A1C 5.1 4.8 - 5.6 % [facility] Comment: Prediabetes: 5.7 - 6.4 Diabetes: >6.4 Glycemic control for adults with diabetes: <7.0 Blood 08/22/2025 12:4 4 PM EDT 08/22/2025 Narrative [facility] - 08/23/2025 5:05 AM EDT Performed at: [address] [id number] Piece Dyer: Leida Kaur MD, Phone: [phone] Kamlesh Baron MD LAB BLOOD ORDERABLES Final Resu lt Performing Organization Address [facility] [place] [address] * IgA (08/22/2025 12:44 PM EDT) [facility] IgA 145 87 - 352 mg/dL [facility] Blood 08/22/2025 12:4 4 PM EDT 08/22/2025 Narrative [facility] - 08/23/2025 3:05 AM EDT Performed at: [address] [id number] Piece Dyer: Leida Kaur MD, Phone: [phone] Kamlesh Baron MD LAB BLOOD ORDERABLES Final Resu lt Performing Organization Address City/[facility]/ZIP Co de Phone Number [facility] [address] [place] [address] * Amylase (08/22/2025 12:44 PM EDT) Pathologist [facility] AMYLASE 73 31 - 110 U/L [facility] Blood 08/22/2025 12:4 4 PM EDT 08/22/2025 Narrative [facility] - 08/23/2025 6:05 AM EDT Performed at: 01 - [address] [id number] Piece Dyer: Leida Kaur MD, Phone: [phone] Kamlesh Baron MD LAB BLOOD ORDERABLES Final Resu lt Performing Organization Address [facility] Co de Phone Number [facility] [address] [place] [address] * (ABNORMAL) Comprehensive metabolic panel (08/22/2025 12:44 PM EDT) Glucose 100(H) 70 - 99 mg/dL [facility] Urea Nitrogen 13 6 - 20 mg/dL [facility] Creatinine 0.81 0.57 - 1.00 mg/dL [facility] BUN/Creatinine Ratio 16 9 - 23 [facility] Sodium 139 134 - 144 mmol/L [facility] Potassium 4.7 3.5 - 5.2 mmol/L [facility] Chloride 104 96 - 106 mmol/L [facility] Carbon Dioxide, Total 23 20 - 29 mmol/L [facility] Calcium 9.8 8.7 - 10.2 mg/dL [facility] Protein, Total 7.0 6.0 - 8.5 g/dL [facility] Albumin 4.5 4.0 - 5.0 g/dL [facility] Globulin Total 2.5 1.5 - 4.5 g/dL [facility] Bilirubin, Total 0.8 0.0 - 1.2 mg/dL [facility] Alkaline Phosphatase 64 42 - 106 IU/L [facility] AST (SGOT) 58(H) 0 - 40 IU/L [facility] ALT (SGPT) 131(H) 0 - 32 IU/L [facility] Blood 08/22/2025 12:4 4 PM EDT 08/22/2025 Narrative [facility] - 08/23/2025 4:05 AM EDT Performed at: 01 - [facility] [address] [id number] Piece Dyer: Leida Kaur MD, Phone: [phone] Kamlesh Baron MD LAB BLOOD ORDERABLES Final Resu lt Performing Organization Address City/[facility] Co de Phone Number [facility] [address] [place] [address] * (ABNORMAL) POCT COVID-19, Influenza, RSV Nucleic Acid (Amplified Probe) (07/31/2025 10:18 AM EDT) Only the most recent of2 resultswithin the time period is included. [facility] SARS-COV-2 Ag Immunoassay, POC POSITIVE(A) Negative [facility] Comment:SPC: NA Influenza A Nucleic Acid Amplified Probe NEGATIVE Negative [facility] Comment:Flu A1: NEG, Flu A2: NEG, SPC: NA Influenza B Nucleic Acid Amplified Probe NEGATIVE Negative [facility] Comment:SPC: NA RSV NEGATIVE Negative [facility] Comment:SPC: NA Internal Control Pass Pass Present [facility] Nasopharyngeal Swab (Nares) 07/31/2025 10:18 AM EDT 07/31/2025 10:18 AM EDT Narrative [facility] - 07/31/2025 10:18 AM EDT [email or web address] ([id number]), [place] office Lot: [id number], Expiry: [id number]: [email or web address] Testing Performed at Criselda Falcon MD POINT OF CARE TEST ORDERABLES Fi nal Result Performing Organization Address City/[facility] Co de Phone Number [facility] [address] [place] [address] * POCT Strep A Nucleic Acid (Amplified Probe) (07/31/2025 10:06 AM EDT) Only the most recent of2 resultswithin the time period is included. Strep A Nucleic Acid Amplified Probe NOT DETECTED Negative NOT DETECTED [facility] Comment:SPC: PASS Internal Control Pass Present Pass [facility] Swab (Throat) 07/31/2025 10: 06 AM EDT 07/31/2025 10:06 AM EDT Narrative [facility] - 07/31/2025 10:06 AM EDT [email or web address] ([id number]), [place] office Lot: [id number], Expiry: [id number]: [email or web address] Testing Performed at Criselda Falcon MD POINT OF CARE TEST ORDERABLES Fi nal Result Performing Organization Address City/[facility]/ZIP Co de Phone Number [facility] [address] [place] [address] * POCT , urine (07/16/2025 8:57 AM EDT) Pathologist [facility] Preg Test, Urine, POC Negative Negative, Presumptive negative [facility] Urine 07/16/2025 8:57 AM EDT Kamlesh Baron MD POINT OF CARE TEST ORDERABLES F inal Result Performing Organization Address [facility] Co de Phone Number [facility] * Chlamydia and Gonorrhoea, Amplified (07/02/2024 1:27 PM EDT) Pathologist [facility] C trach NICOLE Negative Negative [facility] N gonorrhoeae NICOLE Negative Negative [facility] Urine (Urine) 07/02/2024 1:2 7 PM EDT 07/02/2024 Comment:Urine Narrative [facility] - 07/03/2024 4:08 PM EDT Performed at: 01 - [facility] [address], [address], [place], [place] [id number] Piece Dyer: Edgard Manzano MD, Phone: [phone] Kamlesh Baron MD LAB MICROBIOLOGY - GENERAL HARVEY GONZALEZ Final Result [facility] [address] [place] [address] from Last 3 Months or Most Recently Relevant to Health Maintenance Insurance [place] [facility] ACO Care Teams Handicrafts Teacher Relationship Specialty Start Date End Date Kamlesh Baron MD [address] [place] [address] PCP - General Pediatrics 11/02/20
--- OUTSIDE RECORDS SUMMARY | 2025-09-10 16:22 | XMS_ITS | Encounter Summary ---
Author Organization [facility] Address [address] [place] [address] Phone Care Team Providers Care Emergency Medicine Name Role Phone Mary Guerrero MD Primary Care Provider [phone] Encounter Details Date Type Department Care Team (Late st Contact Info) Description 09/05/2025 Results Follow-Up [facility] [place] [address] [place] [address] Mary Guerrero MD [address] [place] [address] Social History Tobacco Use Types Packs/Day Years [...] Description 09/29/2025 1:45 PM EST Office Visit [facility] [address] [place] [address] Lucie Humphrey LCSW [address] [place] [address] 10/07/2025 8:00 AM EST Office Visit [facility] [address] [place] [address] Mary Guerrero MD [address] [place] [address] documented as of this encounter Visit Diagnoses Not on filedocumented in this encounter Care Teams Emergency Medicine Relationship Specialty Start Date End Date Mary Guerrero MD [address] [place] [address] PCP - General Pediatrics 11/02/20 documented as of this encounter
--- OUTSIDE RECORDS SUMMARY | 2025-09-10 16:22 | XMS_ITS | Encounter Summary ---
Author Organization [facility] Address [address] [place] [address] Phone Care Team Providers Care Cork Sorter Name Role Phone Mary Guerrero MD Primary Care Provider [phone] Reason for Visit * Reason Comments Med Refill Encounter Details Date Type Department Care Team (Late st Contact Info) Description 02/23/2022 Refill [facility] [address] [place] [address] Mary Guerrero MD [address] [place] [address] Anxiety Social History Tobacco Use Types Packs/Day [...] encounter Miscellaneous Notes * Telephone Encounter - Bryson Garcia LPN - 02/24/2022 4:55 PM EDT Please book med check in one month per AV. Thank you * Telephone Encounter - Mayr Guerrero MD - 02/24/2022 4:49 PM EDT Ok, thank you. Sending rx. I would like her to come in for a med check in one month. * Telephone Encounter - Bryson Garcia LPN - 02/24/2022 2:23 PM EDT Call placed to mom. Mom states pt was off of medication and now would like to take daily. Mom requesting refill * Telephone Encounter - Mary Guerrero MD - 02/24/2022 1:43 PM EDT Chart reviewed. It looks like this was last filled in April 2021 with three refills and it was not discussed at her [facility] in November. I am wondering whether she went off it and now needs to go back on it. Could you please call the parent for an update? Thank you * Telephone Encounter - Bryson Garcia LPN - 02/23/2022 8:35 AM EDT Pharm requesting refill of fluoxetine 20mg. Last PE 12/06/21 documented in this encounter Plan of Treatment Upcoming Encounters Date Type Department Care Team (Late st Contact Info) Description 09/29/2025 1:45 PM EST Office Visit [facility] [address] [place] [address] Lucie Humphrey LCSW [address] [place] [address] 10/07/2025 8:00 AM EST Office Visit [facility] - [address] [address] Mary Guerrero MD [address] [place] [address] documented as of this encounter Visit Diagnoses Diagnosis Anxiety Anxiety state, unspecified documented in this encounter Care Teams Cork Sorter Relationship Specialty Start Date End Date Mary Guerrero MD [address] [place] [address] PCP - General Pediatrics 11/02/20 documented as of this encounter
--- OUTSIDE RECORDS SUMMARY | 2025-09-10 16:22 | XMS_ITS | Encounter Summary ---
Author Organization [facility] Address [address] [place] [address] Phone Care Team Providers Care Bone Crusher Name Role Phone Mary Guerrero MD Primary Care Provider [phone] Reason for Visit * Reason Comments Med Refill Encounter Details Date Type Department Care Team (Late st Contact Info) Description 07/09/2025 Refill [facility] [place] [address] [place] [address] Mary Guerrero MD [address] [place] [address] Encounter for initial prescription of injectable contraceptive Social History Tobacco Use Types Packs/Day Years [...] Telephone Encounter - Mary Guerrero MD - 07/11/2025 8:26 AM EDT Rx reviewed and e-prescribed to pharmacy. * Telephone Encounter - Zandra Vargas LPN - 07/09/2025 4:28 PM EDT Pharm requesting OCP. Last PE 02/05/25. Upcoming appt 07/16/25. documented in this encounter Plan of Treatment Upcoming Encounters Date Type Department Care Team (Late st Contact Info) Description 09/29/2025 1:45 PM EST Office Visit [facility] [place] [facility] [address] [place] [address] Lucie Humphrey LCSW [address] [place] [address] 10/07/2025 8:00 AM EST Office Visit [facility] [address] [address] Mary Guerrero MD [address] [place] [address] documented as of this encounter Visit Diagnoses Diagnosis Encounter for initial prescription of injectable contraceptive documented in this encounter Care Teams Bone Crusher Relationship Specialty Start Date End Date Mary Guerrero MD [address] [place] [address] PCP - General Pediatrics 11/02/20 documented as of this encounter
--- OUTSIDE RECORDS SUMMARY | 2025-09-10 16:22 | XMS_ITS | Encounter Summary ---
Author Organization [facility] Address [address] [place] [address] Phone Care Team Providers Care Grinder And Plater Name Role Phone Mary Guerrero MD Primary Care Provider [phone] Reason for Visit * Reason Comments Med Refill Encounter Details Date Type Department Care Team (Late st Contact Info) Description 02/16/2023 Refill [facility] [address] [place] [address] Mary Guerrero MD [address] [place] [address] Chronic maxillary sinusitis Social History Tobacco Use [...] Telephone Encounter - Mary Guerrero MD - 02/17/2023 2:08 PM EDT Rx reviewed and e-prescribed to pharmacy. * Telephone Encounter - James Torres LPN - 02/16/2023 11:25 AM EDT Refill request for fluticasone. Last Pe was 01/02/23 documented in this encounter Plan of Treatment Upcoming Encounters Date Type Department Care Team (Late st Contact Info) Description 09/29/2025 1:45 PM EST Office Visit [facility] [address] [place] [address] Lucie Humphrey LCSW [address] [place] [address] 10/07/2025 8:00 AM EST Office Visit [facility] - [address] [address] Mary Guerrero MD [address] [place] [address] documented as of this encounter Visit Diagnoses Diagnosis Chronic maxillary sinusitis documented in this encounter Care Teams Grinder And Plater Relationship Specialty Start Date End Date Mary Guerrero MD [address] [place] [address] PCP - General Pediatrics 11/02/20 documented as of this encounter
--- OUTSIDE RECORDS SUMMARY | 2025-09-10 16:22 | XMS_ITS | Encounter Summary ---
Author Organization [facility] Address [address] [place] [address] Phone Care Team Providers Care Geophysical E Logger Name Role Phone Mary Guerrero MD Primary Care Provider [phone] Reason for Visit * Reason Comments Med Refill Encounter Details Date Type Department Care Team (Late st Contact Info) Description 10/10/2022 Refill [facility] [address] [facility] [place] [address] Mary Guerrero MD [address] [place] [address] Anxiety Social History Tobacco Use Types Packs/Day [...] encounter Miscellaneous Notes * Telephone Encounter - Sonia Grijalva NP - 10/10/2022 3:48 PM EST I will fill this afternoon with the sick appt 4:30pm; can you please do PHQ9 and GEN with viist * Telephone Encounter - Smitha Pate LPN - 10/10/2022 3:09 PM EST Pharm requesting refill fluoxetine 10mg caps. Last PE 12/06/21 script last sent 05/20/22 3 refills, appt scheduled for this afternoon with JR documented in this encounter Plan of Treatment Upcoming Encounters Date Type Department Care Team (Late st Contact Info) Description 09/29/2025 1:45 PM EST Office Visit [facility] - [address] [place] [address] Lucie Humphrey LCSW [address] [place] [address] 10/07/2025 8:00 AM EST Office Visit [facility] [address] [address] Mary Guerrero MD [address] [place] [address] documented as of this encounter Visit Diagnoses Diagnosis Anxiety Anxiety state, unspecified documented in this encounter Care Teams Geophysical E Logger Relationship Specialty Start Date End Date Mary Guerrero MD [address] [place] [address] PCP - General Pediatrics 11/02/20 documented as of this encounter
--- OUTSIDE RECORDS SUMMARY | 2025-09-10 16:23 | XMS_ITS | Encounter Summary ---
Author Organization [facility] Address [address] [place] [address] Phone Care Team Providers Care Structural Welder Name Role Phone Mary Guerrero MD Primary Care Provider [phone] Encounter Details Date Type Department Care Team (Late st Contact Info) Description 05/16/2013 Documentation [facility] [place] [place] Family Medicine [address] [place] [address] Family Medicine, Physician [address] [place] [address] Social History Tobacco Use Types [...] Description 09/29/2025 1:45 PM EST Office Visit [facility] [address] [place] [address] Lucie Humphrey LCSW [address] [place] [address] 10/07/2025 8:00 AM EST Office Visit [facility] [address] [facility] [place] [address] Mary Guerrero MD [address] [place], [place] [phone] documented as of this encounter Visit Diagnoses Not on filedocumented in this encounter Care Teams Structural Welder Relationship Specialty Start Date End Date Mary Guerrero MD [address] [place] [address] PCP - General Pediatrics 11/02/20 documented as of this encounter
--- OUTSIDE RECORDS SUMMARY | 2025-09-10 16:23 | XMS_ITS | Encounter Summary ---
Author Organization [facility] Address [address] [place] [address] Phone Care Team Providers Care Hassock Maker Name Role Phone Mary Guerrero MD Primary Care Provider [phone] Encounter Details Date Type Department Care Team (Late st Contact Info) Description 05/17/2013 Documentation [facility] [place] Family Medicine [address] [place] [address] Family Medicine, Physician [address] [place] [address] Social History Tobacco Use Types [...] Description 09/29/2025 1:45 PM EST Office Visit [facility] [address] [place] [address] Lucie Humphrey LCSW [address] [place] [address] 10/07/2025 8:00 AM EST Office Visit [facility] [address] [facility] [place] [address] Mary Guerrero MD [address] [place], [place] [phone] documented as of this encounter Visit Diagnoses Not on filedocumented in this encounter Care Teams Hassock Maker Relationship Specialty Start Date End Date Mary Guerrero MD [address] [place] [address] PCP - General Pediatrics 11/02/20 documented as of this encounter
--- OUTSIDE RECORDS SUMMARY | 2025-09-10 16:23 | XMS_ITS | Encounter Summary ---
Author Organization [facility] Address [address] [place] [address] Phone Care Team Providers Care Apron Trimmer Name Role Phone Mary Guerrero MD Primary Care Provider [phone] Encounter Details Date Type Department Care Team (Late st Contact Info) Description 05/16/2013 Documentation [facility] [place] [address] [place] [address] Family Medicine, Physician [address] [place] [address] Social History Tobacco Use Types [...] Description 09/29/2025 1:45 PM EST Office Visit [facility] [address] [place] [address] Lucie Humphrey LCSW [address] [place] [address] 10/07/2025 8:00 AM EST Office Visit [facility] [address] [facility] [address] Mary Guerrero MD [address] [place], [place] [phone] documented as of this encounter Visit Diagnoses Not on filedocumented in this encounter Care Teams Apron Trimmer Relationship Specialty Start Date End Date Mary Guerrero MD [address] [place] [address] PCP - General Pediatrics 11/02/20 documented as of this encounter
--- OUTSIDE RECORDS SUMMARY | 2025-09-10 16:23 | XMS_ITS | Encounter Summary ---
Author Organization [facility] Address [address] [place] [address] Phone Care Team Providers Care Commercial Loan Assistant Name Role Phone Mary Guerrero MD Primary Care Provider Reason for Visit * Reason Onset Date Comments please call 08/24/2025 Encounter Details Date Type Department Care Team (Late st Contact Info) Description 08/24/2025 Telephone [facility] [place] [address] [place] [address] Mansi Diaz LPN [address] [place] [address] please call Social History Tobacco Use Types Packs/Day Years [...] encounter Miscellaneous Notes * Telephone Encounter - Lashaun Dhaliwal NP - 08/24/2025 12:28 PM EDT Spoke with Conchis and her mom via phone re: lipid results. Reassurance given that results are borderline for her age and do not require medication at this time. Discussed lifestyle modifications and encouraged avoidance of fried foods and processed foods. Also encouraged omega rich fats, lean proteins, fruits and veggies. Exercise 30-60 minutes daily. Follow up with Dr. Guerrero * Telephone Encounter - Mansi Diaz LPN - 08/24/2025 10:17 AM EDT Mom called with Conchis on line with her. Holger Cholesterol levels were high and she is very anxiousabout it. Mom said she is too anxious to wait for a call from Dr Guerrero and would like a call to discuss. [phone]/JOD documented in this encounter Plan of Treatment Upcoming Encounters Date Type Department Care Team (Late st Contact Info) Description 09/29/2025 1:45 PM EST Office Visit [facility] [address] [place] [address] Lucie Humphrey LCSW [address] [place] [address] 10/07/2025 8:00 AM EST Office Visit [facility] [address] [place] [address] Mary Guerrero MD [address] [place] [address] documented as of this encounter Visit Diagnoses Not on filedocumented in this encounter Care Teams Commercial Loan Assistant Relationship Specialty Start Date End Date Mary Guerrero MD [address] [place] [address] PCP - General Pediatrics 11/02/20 documented as of this encounter
--- OUTSIDE RECORDS SUMMARY | 2025-09-10 16:23 | XMS_ITS | Encounter Summary ---
Author Organization [facility] Address [address] [place] [address] Phone Care Team Providers Care Windows Vmware Engineer Name Role Phone Mary Guerrero MD Primary Care Provider [phone] Encounter Details Date Type Department Care Team (Late st Contact Info) Description 04/06/2010 Documentation [facility] [place] Family Medicine [address] [place] [address] Family Medicine, Physician [address] [place] [address] Social History Tobacco Use Types [...] Description 09/29/2025 1:45 PM EST Office Visit [facility] [address] [place] [address] Lucie Humphrey LCSW [address] [place] [address] 10/07/2025 8:00 AM EST Office Visit [facility] [address] [facility] [place] [address] Mary Guerrero MD [address] [place], [place] [phone] documented as of this encounter Visit Diagnoses Not on filedocumented in this encounter Care Teams Windows Vmware Engineer Relationship Specialty Start Date End Date Mary Guerrero MD [address] [place] [address] PCP - General Pediatrics 11/02/20 documented as of this encounter
--- OUTSIDE RECORDS SUMMARY | 2025-09-10 16:23 | XMS_ITS | Encounter Summary ---
Author Organization [facility] Address [address] [place] [address] Phone Care Team Providers Care Doughnut Maker Name Role Phone Mary Guerrero MD Primary Care Provider [phone] Reason for Visit * Reason Comments Med Refill Encounter Details Date Type Department Care Team (Late st Contact Info) Description 01/24/2020 Refill [facility] [place] [address] [place] [address] Jenifer Grewal, SHALINI [address] [address] Anxiety Social History Tobacco Use Types Packs/Day Years Used Date Smoking Tobacco: Never Smokeless Tobacco: Never Comments:Never smoker Hunger/Food Answer Date Recorded No 08/19/2019 Stable Housing Answer Date Recorded No 11/08/2019 Transportation Concerns Answer Date Rec orded No 08/19/2019 Hazards in Home Answer Date Recorded No 08/19/2019 Financing Utilities Answer Date Recorde d No 08/19/2019 Safety at Home Answer Date Recorded No 08/19/2019 Outside Support Answer Date Recorded No 08/19/2019 Understanding Health Concerns Answer Da te Recorded No 08/19/2019 Financing Health Concerns Answer Date R ecorded No 08/19/2019 Missing School or Work Answer Date Arnulfo rded No 08/19/2019 Comments No Sex and Gender Information Value Date Recorded Sex Assigned at Not on file Legal Sex Female 5:16 PM EDT Gender Identity Female 10/26/2020 4:22 PM EST Sexual Orientation Straight 06/29/2023 11 :53 AM EDT documented as of this encounter Miscellaneous Notes * Telephone Encounter - Lucie Elizabeth LPN - 02/05/2020 1:37 PM EDT Pt was scheduled for 45 min virtual med check with Dr. Galicia for 02/13. EH * Telephone Encounter - Jenifer Grewal NP - 01/27/2020 5:05 PM EDT Patient will need a telemedicine f/u with another provider * Telephone Encounter - Jaqueline Jo MD - 01/24/2020 1:59 PM EDT Chart reviewed. Patient seen for well visit 11/29/19 and does not have a med check f/u appt scheduled (and no mention in note from 11/29/19 as when that should be). I will fill this for a month, but will also send a message to PCP to see when she wants to see the patient for f/u (likely telehealth atthis point?). * Telephone Encounter - Lucie Elizabeth LPN - 01/24/2020 12:31 PM EDT [place] PCP SO: Pharm fax refill request fluoxetine. EH documented in this encounter Plan of Treatment Upcoming Encounters Date Type Department Care Team (Late st Contact Info) Description 09/29/2025 1:45 PM EST Office Visit [facility] [address] [place] [address] Lucie Humphrey LCSW [address] [place] [address] 10/07/2025 8:00 AM EST Office Visit [address] [place] [address] Mary Guerrero MD [address] [place] [address] documented as of this encounter Visit Diagnoses Diagnosis Anxiety Anxiety state, unspecified documented in this encounter Care Teams Doughnut Maker Relationship Specialty Start Date End Date Mary Guerrero MD [address] [place] [address] PCP - General Pediatrics 11/02/20 documented as of this encounter
== END 2025-09-10 15:39 | disposition home or self-care (01) ==
LOC: HO.HWSM 13:26
PROVIDERS: PCP Pediatrics; Visit Provider Advanced Practice Midwife
DX: Z01.419 Encounter for gynecological examination (general) (routine) without abnormal findings (principal); F41.1 Generalized anxiety disorder; E66.01 Morbid (severe) obesity due to excess calories; Z68.42 Body mass index [BMI] 45.0-49.9, adult; Z11.3 Encounter for screening for infections with a predominantly sexual mode of transmission; Z30.09 Encounter for other general counseling and advice on contraception; Z78.9 Other specified health status
CPT/HCPCS: 99385; 99459

== ENCOUNTER 2025-09-10 13:26 | Outpatient (REF) | payer OTHER, SELFPAY ==
--- OUTSIDE RECORDS SUMMARY | 2025-09-10 18:33 | XMS_ITS | Clinical Summary ---
Author Organization [address] [place] [address] Address [address] [place] [address] Phone Care Team Providers Care Varnish Maker Name Role Phone Mary Guerrero MD Primary Care Provider [phone] Allergies Active Allergy Reactions Criticality Noted Date Comments Amoxicillin Rash,Unknown Low 04/20/2018 Cephalexin Rash Low 11/18/2019 Not 100% sure this is allergy - morbiliform rash on day 7 of meds, on all 4 extremities. + itching. 2nd episode - 1st happened with amoxicillin. Penicillin G 05/02/2024 Other Reaction(s): Rash/Dermatitis Penicillin V Rash 04/24/2022 Medications omeprazole (PriLOSEC) [address] capsule Take 1 capsule (20 mg total) by mouth if needed. 5 Active ondansetron (ZOFRAN) 4 mg tabletIndicatio ns:Nausea in adult Take 1 tablet (4 mg total) by mouth every 8 (eight) hours if needed for nausea or vomiting for up to 40 doses. 20 tablet 1 5 Active tirzepatide, weight loss, (Zepbound) 10 mg/0.5 mL injection Inject 0.5 mL (10 mg total) under the skin every 7 (seven) days. 2 mL 5 09/05/20 25 Encounters Date Type Department Care Team Description 08/05/2025 Telephone Bariatric Surgery [facility] [address] [facility] [address] [place] [address] Moe Aburto MD from Last 3 Months Social History Tobacco Use Types Packs/Day Years Used Date Smoking Tobacco: Never Tobacco Cessation:Counseling Given: Not Answered Comments Unknown Sex and Gender Information Value Date Recorded Sex Assigned at Female 02/15/2025 4:27 PM EDT Legal Sex Female 1:20 PM EST Gender Identity Female 02/15/2025 4:27 PM EDT Sexual Orientation Straight 02/15/2025 4: 27 PM EDT Obstetrics History Last Filed Vital Signs Vital Sign Reading Time Taken Comments Blood Pressure 106/74 05/13/2025 9:21 AM EDT Pulse 81 05/13/2025 9:21 AM EDT Temperature 36.7 C (98.1 F) 02/15/2025 4:07 PM EDT Respiratory Rate 18 02/15/2025 4:07 PM EDT Oxygen Saturation 99% 02/15/2025 4:07 PM EDT Inhaled Oxygen Concentration - - Weight 109 kg (241 lb) 05/13/2025 9:21 AM EDT Height 149.9 cm (4' 11 ) 05/13/2025 9:21 AM EDT Body Mass Index 48.68 05/13/2025 9:21 AM EDT Plan of Treatment Upcoming Encounters Date Type Department Care Team (Late st Contact Info) Description 11/13/2025 4:15 PM EST Office Visit Bariatric Surgery - [address] [place] [phone] Moe Aburto MD [address] [place] [phone] Health Maintenance Due Date Last Done Comments Gonorrhea/Chlamydia Screening 2005 Cholesterol Screening (Lipid Panel) 10/04/2022 HIV Screening 10/04/2022 Hepatitis C Screening 10/04/2022 Social Influencers of Health Screening 10/04/2022 Depression Screening 11/06/2024 COVID-19 Vaccine ( season) 2025 08/16/2022, 11/01/2021, 04/12/2021, Additional history exists Influenza Vaccine (#1) 2025 , 08/16/2022, 08/01/2021, Additional history exists Annual Well Child Visit (3-21 years old) 02/05/2026 02/05/2025, 01/05/2024, 01/02/2023, Additional history exists DTaP,Tdap,and Td Vaccines (8 - Td or Tdap) 11/09/2026 11/09/2016, 11/02/2016, 10/13/2009, Additional history exists RSV Immunization Adult Patients (1 - 1-dose 75+ series) 2080 Hepatitis B Vaccines Completed 01/13/2006, 2005, 2005, Additional history exists HIB Vaccines Completed 10/25/2006, 01/04, 2005, Additional history exists Pneumococcal Vaccine: Pediatrics (0 to 5 Years) and At-Risk Patients (6 to 49 Years) Completed 10/25/2006, 01/13/2006, 2005, Additional history exists Hepatitis A Vaccines Completed 10/04/2007, 10/25/20 IPV Vaccines Completed 10/13/2009, 01/04, 2005, Additional history exists MMR Vaccines Completed 10/13/2009, 07/25/2006 Varicella Vaccines Completed 10/13/2009, 07/25/2006 HPV Vaccines Completed 11/13/2017, 11/09/2016 Meningococcal ACWY Vaccine Completed 12/06, 11/09/2016, 11/02/2016 Meningococcal B Vaccine Completed 01/05/2024, 01/02 RSV Immunization Patients Under 20 months Aged Out No longer eligible based on patient's age to complete this topic Insurance [facility] Care Teams Varnish Maker Relationship Specialty Start Date End Date Mary Guerrero MD [address] [place] [address] PCP - General Pediatrics 02/15/25
--- OUTSIDE RECORDS SUMMARY | 2025-09-10 18:33 | XMS_ITS | Encounter Summary ---
Author Organization [facility] Address [address] [place] [address] Care Team Providers Care Tappet Adjuster Name Role Phone Mary Guerrero MD Primary Care Provider [phone] Reason for Visit * Reason Onset Date Comments prior auth 09/30/2024 Prior auth Encounter Details Date Type Department Care Team (Late Contact Info) Description 09/30/2024 Telephone Bariatric Surgery [address] [address] Moe Aburto MD [address] [place] [phone] Social History Tobacco Use Types Packs/Day Years Used Date Smoking Tobacco: Never Assessed Comments Unknown Sex and Gender Information Value Date Recorded Sex Assigned at Female 02/15/2025 4:27 PM EDT Legal Sex Female 1:20 PM EST Gender Identity Female 02/15/2025 4:27 PM EDT Sexual Orientation Straight 02/15/2025 4: 27 PM EDT documented as of this encounter Progress Notes * Jacque Hutchins - 09/30/2024 1:25 PM EST Patient needs prior auth for Zepbound 2.5 mg documented in this encounter Plan of Treatment Upcoming Encounters Date Type Department Care Team (Late Contact Info) Description 11/13/2025 4:15 PM EST Office Visit Bariatric Surgery [facility] [address] [address] Moe Aburto MD [address] [place] [phone] documented as of this encounter Visit Diagnoses Not on filedocumented in this encounter Care Teams Tappet Adjuster Relationship Specialty Start Date End Date Mary Guerrero MD [address] [place] [address] PCP - General Pediatrics 02/15/25 documented as of this encounter
[2025-09-11 13:39] LABS: Bacterial Vaginosis PCR NEGATIVE (Negative); Candida Group PCR NOT DETECTED (Not Detect); Candida glab krusei PCR NOT DETECTED (Not Detect); Trichomonas vaginalis PCR NOT DETECTED (Not Detect)
[2025-09-11 14:32] LABS: CT PCR NOT DETECTED (Not Detect.); NG PCR NOT DETECTED (Not Detect.)
== END 2025-09-10 13:27 | disposition home or self-care (01) ==
LOC: HO.LNP 13:26
PROVIDERS: PCP Pediatrics; Visit Provider Advanced Practice Midwife
DX: Z01.419 Encounter for gynecological examination (general) (routine) without abnormal findings (principal); Z30.09 Encounter for other general counseling and advice on contraception; Z20.2 Contact with and (suspected) exposure to infections with a predominantly sexual mode of transmission; F41.1 Generalized anxiety disorder; Z78.9 Other specified health status; E66.01 Morbid (severe) obesity due to excess calories; Z68.42 Body mass index [BMI] 45.0-49.9, adult; Z79.899 Other long term (current) drug therapy
CPT/HCPCS: 81515; 87491; 87591; 99385

== ENCOUNTER 2025-09-10 15:47 | Outpatient (REF) | payer OTHER, SELFPAY | END 2025-09-10 15:48 | disposition home or self-care (01) | LOC: HO.LAB 15:47 | PROVIDERS: Visit Provider Advanced Practice Midwife | DX: Z13.89 Encounter for screening for other disorder (principal) ==